=== PATIENT | female | born 1980 | race Caucasian/White ===

== ENCOUNTER 2022-07-17 10:22 | Outpatient (CLI) | payer BC ==
[2022-07-17 11:00] LABS: BASOPHILS % (AUTO) 0.4 % (0.0-2.0); EOSINOPHILS % (AUTO) 0.7 % (0.0-6.0); HEMATOCRIT 45 % (33-45); HEMOGLOBIN 14.6 g/dL (11.5-14.8); LYMPHOCYTES # (AUTO) 1.7 K/uL (0.8-4.8); LYMPHOCYTES % (AUTO) 24.3 % (20.0-44.0); MEAN CORPUSCULAR HGB CONC 33 g/dl (31.0-36.0); MEAN CORPUSCULAR VOLUME 93 fL (82-100); MONOCYTES # (AUTO) 0.5 K/uL (0.1-1.30); MONOCYTES % (AUTO) 6.6 % (2.0-12.0); NEUTROPHILS # (AUTO) 4.7 K/uL (1.8-8.9); PLATELET COUNT (AUTO) 361 K/uL (150-450); RED BLOOD CELL COUNT(AUTO) 4.79 MIL/uL (4.0-5.2); WHITE BLOOD COUNT (AUTO) 6.8 K/uL (4.3-11.0)
[2022-07-17 11:33] LABS: THYROID STIMULATING HORMONE 1.632 uIU/mL (0.358-3.74); URIC ACID 4.2 mg/dL (2.6-7.2)
[2022-07-17 11:49] LABS: ALBUMIN 4.4 g/dL (3.4-5.0); BILIRUBIN,TOTAL 0.6 mg/dL (0.2-1.0); MAGNESIUM 2.3 mg/dL (1.8-2.4); POTASSIUM 3.8 mmol/L (3.5-5.1); TOTAL PROTEIN, SERUM 8.3 g/dL (6.4-8.2)
== END 2022-07-17 23:59 | disposition home or self-care (01) ==
LOC: LAB 10:22
PROVIDERS: ATTEND Family Medicine
DX: E55.9 Vitamin D deficiency, unspecified (principal); R68.89 Other general symptoms and signs
CPT/HCPCS: 36415; 80053-TC; 80061-TC; 82306; 82607-TC; 82728-TC; 83540-TC; 83735-TC; 84439-TC; 84443-TC; 84481; 84550-TC; 85025-TC